=== PATIENT | male | born 1970 | race Caucasian/White ===

== ENCOUNTER 2021-10-22 12:09 | Day surgery (SDC) | payer BC ==
[~2021-10-22] VITALS: Ht 175.3 cm; Wt 69.9 kg
--- NOTE | ~2021-10-22 | OR ---
[facility] [address], [place] [address] Draft DATE OF OPERATION: 10/22/2021 SURGEON: Dayanara Rahman MD PREOPERATIVE DIAGNOSIS: Anemia. POSTOPERATIVE DIAGNOSES: 1. Diverticulosis of colon. 2. Mild mid gastric inflammation, no evidence of ulceration or neoplasm. PROCEDURES: 1. Esophagogastroduodenoscopy with biopsy. 2. Total colonoscopy to cecum. ANESTHESIA: Intravenous sedation, fentanyl 150 mcg and Versed 10 mg total. INDICATION: This is a 51-year-old white man who is a patient of Brianna Alexandra, advanced registered nurse practitioner. He is referred with low-grade anemia, hematocrit of 39.9. He has had no overt blood per rectum, hematemesis or other known bleeding episodes. He is admitted at this time to undergo upper endoscopy and colonoscopy to better characterize his low-grade anemia. FINDINGS: Upper endoscopy showed no evidence of ulcer or neoplasm. He has had mild diffuse inflammation. Biopsies were taken including the duodenum to assess for celiac disease on the possibility of poor iron absorption causing his anemia. As regard to colon, he had a good prep. Complete colonoscopy was undertaken of the cecum. There were diverticula, but no signs of polyps, colitis, or other lesion to account for anemia. DESCRIPTION OF PROCEDURE: The patient was brought to the endoscopy suite and placed in lateral decubitus position, given intravenous sedation to the point of slurred speech and nystagmus with full cardiopulmonary monitoring. Lidocaine hypopharyngeal anesthesia had been given and a bite block was placed. PATIENT NAME: MARTHA YAN OPERATIVE REPORT DATE OF : 70 REPORT #: [id number] PHYSICIAN: DAYANARA RAHMAN MD PCP: BRIANNA ALEXANDRA NP REPORT IS CONFIDENTIAL AND NOT TO BE RELEASED WITHOUT AUTHORIZATION [facility] [address], [place] [address] Draft An Olympus video upper endoscope was passed in the hypopharynx. The vocal cords appeared normal. Scope was advanced to the esophagus and throughout its length it was normal. Scope passed into the stomach, which was insufflated with air. Rugal folds were normal, though there was a mild edematous appearing colon, not with ulceration or erosions per se, but likely with mild chronic inflammation. The pylorus was normal. Scope was passed through into the duodenum, which was normal. Biopsies were taken of the duodenum to assess for celiac disease. Further withdrawal of the scope allowed for biopsy of the stomach for both DEJUAN and pathologic testing. Retroflexed view was normal. The scope was withdrawn to the distal esophagus, which appeared normal and the remaining esophagus normal as well. Plans were then made for colonoscopy. Additional sedation was given and digital rectal examination performed which was normal. An Olympus video colonoscope was passed in the rectum and manipulated throughout the colon noting diverticular changes of the sigmoid and left colon. Scope was ultimately passed to the cecum. Upon entry to the cecum, there was no evidence of abnormality. Careful withdrawal of the scope showed no sign of abnormality other than diverticulosis, specifically no colitis or polyps or cancer. Retroflexed view was normal as well. The scope was removed and the patient was taken to the recovery room in good condition. CONCLUDING DIAGNOSES: 1. Mild gastritis, no lesion to account for anemia. 2. Diverticulosis. No sign of neoplasm, colitis, or blood loss or bleeding lesion. FOLLOWUP PLANS: He will return to the ongoing care of WENDY Borrego. Repeat CBC may be advisable as he may no longer have a presentation of anemia anyway. I will await the pathology report regarding celiac disease; if that is normal, then malabsorption of iron would likely be the cause of his anemia for which a gluten free diet would be initiated. MD STEPHANIA Vernon/TARIKL /[id number] PATIENT NAME: MARTHA YAN OPERATIVE REPORT DATE OF : 70 REPORT #: [id number] PHYSICIAN: DAYANARA RAHMAN MD PCP: BRIANNA ALEXANDRA NP REPORT IS CONFIDENTIAL AND NOT TO BE RELEASED WITHOUT AUTHORIZATION [facility] [address] [facility] [place], [place] [address] Draft cc: Brianna Alexandra NP Copies: BRIANNA ALEXANDRA NP ~ PATIENT NAME: MARTHA YAN OPERATIVE REPORT DATE OF : 70 REPORT #: [id number] PHYSICIAN: DAYANARA RAHMAN MD PCP: BRIANNA ALEXANDRA NP REPORT IS CONFIDENTIAL AND NOT TO BE RELEASED WITHOUT AUTHORIZATION
[~2021-10-22 12:09] MED LIST: BUSPIRONE HCL5 MG PO; FERROUS SULFAT325 M2 PO; LOSARTAN POTASS50 MG PO; SILDENAFIL20 MG PO; TRAZODONE HCL50 MG PO
--- NOTE | 2021-10-22 14:42 | NUR ---
10/22/21 1442 DELON WATSON 1434-PATIENT ARRIVES TO PACU ON 2L VIA NC. PATIENT IS AWAKE AND TALKING. REPOSTIOS HIMSELF IN BED. HOB RAISED. RESP EVEN AND UNLABORED. DENIES PAIN AND NAUSEA.
--- NOTE | 2021-10-23 16:04 | PATH ---
[facility] [address], [place] [address] Signed SPECIMEN(S): A DUODENAL BIOPSY SPECIMEN(S): B ANTRUM/PYLORUS BIOPSY SPECIMEN(S): C PROXIMAL STOMACH BIOPSY SPECIMEN(S): D LOW ESOPHAGEAL BIOPSY SPECIMEN SOURCE: A. DUODENAL BIOPSY B. ANTRUM/PYLORUS BIOPSY C. PROXIMAL STOMACH BIOPSY D. LOW ESOPHAGEAL BIOPSY CLINICAL HISTORY: Colonoscopy/EGD. Iron deficiency anemia. Dx: Mild chronic esophagitis; normal colon. FINAL PATHOLOGIC DIAGNOSIS: A. Duodenum, biopsy: - Duodenal mucosa with no significant pathologic changes. B. Stomach, antrum/pylorus, biopsy: - Gastric antral mucosa with no significant pathologic changes. - Negative for Helicobacter pylori with HE stains. C. Stomach, proximal, biopsy: - Gastric oxyntic mucosa with no significant pathologic changes. D. Esophagus, lower, biopsy: - Esophageal squamous mucosa with focal parakeratosis. - Negative for fungal organisms with special stains (GMS; valid controls). BRP:[id number] MICROSCOPIC EXAMINATION: Histologic sections of all submitted blocks are examined by light microscopy. These findings, together with the gross examination, support the pathologic diagnosis. GROSS DESCRIPTION: Four specimens are received in four containers, labeled "RH." A. The specimen, labeled "RH," and designated on the requisition "duodenum," is received in formalin and consists of one garcia soft tissue fragment that measures 0.3 cm in greatest dimension. The specimen is entirely submitted in cassette (A1). B. The specimen, labeled "RH," and designated on the requisition "antrum/pylorus," is received in formalin and consists of one garcia soft tissue PATIENT NAME: MARTHA YAN PATHOLOGY DATE OF : 70 REPORT #: [id number] PHYSICIAN: ROSA COFFMAN PCP: BRIANNA ALEXANDRA NP REPORT IS CONFIDENTIAL AND NOT TO BE RELEASED WITHOUT AUTHORIZATION [facility] [address], [place] [address] Signed fragment that measures 0.3 cm in greatest dimension. The specimen is entirely submitted in cassette (B1). C. The specimen, labeled "RH," and designated on the requisition "proximal stomach," is received in formalin and consists of two garcia soft tissue fragments that measure 0.3-0.5 cm in greatest dimension. The specimen is entirely submitted in cassette (C1). D. The specimen, labeled "RH," and designated on the requisition "lower esophagus," is received in formalin and consists of two garcia soft tissue fragments that measure 0.3 cm in greatest dimension. The specimen is entirely submitted in cassette (D1). AT (under the direct supervision of a pathologist) The Gross Description was prepared using a voice recognition system. The report was reviewed for accuracy; however, sound-alike word errors, addition and/or deletions may occur. If there is any question about this report, please contact Client Services. PERFORMING LABORATORY: The technical component was performed by [employer] [facility] [facility] [address] (Cutlery Grinder: Isatu Black MD; CLIA# [id number]). [facility] [address] [address] (CLIA# [id number]). Diagnostician: Popeye Arshad MD Pathologist Electronically Signed 10/23/2021 Copies: ~ PATIENT NAME: MARTHA YAN CARLOS PATHOLOGY DATE OF : 70 REPORT #: [id number] PHYSICIAN: ROSA PATHOLOGY PCP: BRIANNA ALEXANDRA NP REPORT IS CONFIDENTIAL AND NOT TO BE RELEASED WITHOUT AUTHORIZATION
== END 2021-10-22 15:15 | disposition home or self-care (01) ==
LOC: OPS 12:09 → DS 12:11 → OPS 14:00
PROVIDERS: ATTEND Surgery
PROC: 0DB68ZX Excision of Stomach, Via Natural or Artificial Opening Endoscopic, Diagnostic (ICD-10-PCS; 2021-10-22)
PROC: 0DB38ZX Excision of Lower Esophagus, Via Natural or Artificial Opening Endoscopic, Diagnostic (ICD-10-PCS; 2021-10-22)
PROC: 0DJD8ZZ Inspection of Lower Intestinal Tract, Via Natural or Artificial Opening Endoscopic (ICD-10-PCS; 2021-10-22)
PROC: 0DB98ZX Excision of Duodenum, Via Natural or Artificial Opening Endoscopic, Diagnostic (ICD-10-PCS; principal; 2021-10-22 14:00)
PROC: 0DB78ZX Excision of Stomach, Pylorus, Via Natural or Artificial Opening Endoscopic, Diagnostic (ICD-10-PCS; 2021-10-22 14:00)
DX: D64.9 Anemia, unspecified (principal); K57.30 Diverticulosis of large intestine without perforation or abscess without bleeding; K29.70 Gastritis, unspecified, without bleeding; I10 Essential (primary) hypertension; Q60.0 Renal agenesis, unilateral; R23.4 Changes in skin texture; Z86.16 Personal history of COVID-19
CPT/HCPCS: 99153; G0500; J2250; J3010